=== PATIENT | male | born 1975 ===

== ENCOUNTER 2018-09-11 15:29 | Emergency (ER) | payer OTHER ==
[~2018-09-11] VITALS: Ht 188 cm; Wt 176.4 kg
[2018-09-11] MEDS ORDERED: COZAAR50 MG (16:02)
== END 2018-09-11 19:29 | disposition home or self-care (01) ==
LOC: ER 15:29
DX: S91.242A Puncture wound with foreign body of left great toe with damage to nail, initial encounter (principal); W26.8XXA Contact with other sharp object(s), not elsewhere classified, initial encounter; Y93.89 Activity, other specified; Y92.89 Other specified places as the place of occurrence of the external cause; Y99.8 Other external cause status